=== PATIENT | female | born 1995 | race American Indian/Alaskan Native ===

== ENCOUNTER 2018-09-14 01:23 | Emergency (ER) | payer MEDICAID, OTHER ==
--- NOTE | 2018-09-14 01:50 | EDM.PDOC ---
ED HPI GENERAL MEDICAL PROBLEM - General Chief Complaint: Laceration Stated Complaint: SLICED LEFT ARM Time Seen by Provider: 09/14/18 01:45 Source of Information: Reports: Patient History Limitations: Reports: No Limitations - History of Present Illness INITIAL COMMENTS - FREE TEXT/NARRATIVE: pt arrived with a 4 inch laceration on the neville aspect of the left arm. This has been bleeding a fairamount. She evidently punched at a window and she ended up with a laceration. She did get a tetanus at [facility] and a shot for pain. Onset: Today, Sudden Duration: Hour(s): Location: Reports: Upper Extremity, Left Associated Symptoms: Reports: No Other Symptoms - Related Data Allergies Allergy/AdvReac Type Severity Reaction Status Date / Time No Known Allergies Allergy Verified 09/14/18 01:41 Home Meds: Home Meds NK [No Known Home Meds] 09/14/18 [History] Past Medical History Respiratory History: Reports: Asthma [employer] History: Reports: Endocrine/Metabolic History: Reports: Diabetes, Gestational Social & Family History - Tobacco Use Smoking Status *Q: Heavy Tobacco Smoker Years of Tobacco use: 5 Packs/Tins Daily: 0.5 - Caffeine Use Caffeine Use: Reports: Coffee - Recreational Drug Use Recreational Drug Use: Yes Recreational Drug Type: Reports: Marijuana/Hashish ED ROS GENERAL - Review of Systems Review Of Systems: See Below Constitutional: Reports: No Symptoms HEENT: Reports: No Symptoms Respiratory: Reports: No Symptoms Cardiovascular: Reports: No Symptoms Endocrine: Reports: No Symptoms GI/Abdominal: Reports: No Symptoms : Reports: No Symptoms Musculoskeletal: Reports: Other (pt has a 4 inch laceration on the neville aspect of the left arm. ) Skin: Reports: No Symptoms ED EXAM, SKIN/RASH Exam: See Below Text/Narrative:: Pt arrived with a 4 inch laceration on the neville aspect of the left arm. She appears to have normal sensation and normal motion of all fingers. Exam Limited By: No Limitations General Appearance: Alert, Anxious, Moderate Distress Extremities: Other ( pt has a normal pulse, normal sensation and normal motion of the fingers. ) Neurological: Alert, Oriented, Normal Cognition Psychiatric: Normal Affect Course - Vital Signs Last Recorded V/S: Last Vital Signs Temp 35.9 C 09/14/18 01:42 Pulse 94 09/14/18 01:42 Resp 16 09/14/18 01:42 BP 123/69 09/14/18 01:42 Pulse Ox 98 09/14/18 01:42 - Orders/Labs/Meds Orders: Active Orders 24 hr Category Date Time Status Sodium Chloride 0.9% [Normal Saline] 1,000 ml Med 09/14/18 02:30 Ordered IV ASDIRECTED ceFAZolin [Ancef] 1 gm Med 09/14/18 02:24 Ordered Sodium Chloride 0.9% [Normal Saline] 50 ml IV ONETIME Medication Orders Sodium Chloride (Normal Saline) 1,000 mls @ 999 mls/hr IV ASDIRECTED RICKY Cefazolin Sodium 1 gm/ Sodium (Chloride) 50 mls @ 100 mls/hr IV ONETIME ONE Stop: 09/14/18 02:53 Meds: Medications Generic Name Dose Route Start Last Admin Trade Name Freq PRN Reason Stop Dose Admin Sodium Chloride 1,000 mls @ 999 mls/hr 09/14/18 02:30 Normal Saline IV ASDIRECTED RICKY Cefazolin Sodium 1 gm/ Sodium 50 mls @ 100 mls/hr 09/14/18 02:24 Chloride IV 09/14/18 02:53 ONETIME ONE Discontinued Medications Generic Name Dose Route Start Last Admin Trade Name Freq PRN Reason Stop Dose Admin Oxycodone/Acetaminophen 1 tab 09/14/18 02:25 Percocet 325-5 Mg PO 09/14/18 02:26 ONETIME ONE - Re-Assessments/Exams Free Text/Narrative Re-Assessment/Exam: 09/14/18 01:50 The wound will be cleaned well and a wet to dry dressing will be applied. Dr Patel will be willing to explore and close the wound at 7 am. This was discussed with the pt and she will decide whether she is staying or not. She was advised that she would need to be back at 7 am and she needs to be NPO 09/14/18 02:21 09/14/18 02:50 At [facility] The Pt had a tetnus booster and she was given a gram of rocephen. Departure - Departure Time of Disposition: 02:47 Disposition: Home, Self-Care 01 Condition: Fair Clinical Impression: Laceration - Discharge Information Referrals: PCP,None [Primary Care Provider] - Forms: ED Department Discharge Care Plan Goals: pt decided not to stay in the ER until she could be repaired. She stated that she would be back at 6 thirty to have her arm repaired and explored. Prior to leaving she was given a percocet for pain. It was stressed that the pt needed to remain NPO/ At this time the pt had a wet to dry dressing on the wound. - My Orders Last 24 Hours: My Active Orders 09/14/18 02:24 ceFAZolin [Ancef] 1 gm Sodium Chloride 0.9% [Normal Saline] 50 ml IV ONETIME 09/14/18 02:30 Sodium Chloride 0.9% [Normal Saline] 1,000 ml IV ASDIRECTED - Assessment/Plan Last 24 Hours: My Active Orders 09/14/18 02:24 ceFAZolin [Ancef] 1 gm Sodium Chloride 0.9% [Normal Saline] 50 ml IV ONETIME 09/14/18 02:30 Sodium Chloride 0.9% [Normal Saline] 1,000 ml IV ASDIRECTED
[2018-09-14] MEDS ORDERED: ceFAZolin 1 GM in Sodium Chloride 0.9% 50 ML IV ONE (02:24)
[2018-09-14] MEDS ORDERED: Acetaminophen/oxyCODONE 325-5 MG Tab PO ONE (02:25)
[2018-09-14] MEDS ORDERED: Sodium Chloride 0.9% 1,000 ML IV SCH (02:30)
== END 2018-09-14 02:52 | disposition home or self-care (01) ==
LOC: JP.ED 01:23
DX: S41.112A Laceration without foreign body of left upper arm, initial encounter (principal); W22.8XXA Striking against or struck by other objects, initial encounter
CPT/HCPCS: 99282